=== PATIENT | male | born 1935 | race Caucasian/White ===

== ENCOUNTER → 2020-11-27 | Outpatient (CLI) | payer OTHER ==
[~2020-11-27] MED LIST: ALPRAZOLAM 0.50.5 M1 PO; DOCUSATE CALCI240 MG PO; DONEPEZIL HCL 55 M1 PO; FUROSEMIDE 20 M20 M1 PO; IPRATROPIU0.2 MG/1 M INH; KEPPRA 500 MG500 M1 PO; LOPRESSOR50 PO; LOSARTAN POTASS50 MG PO; LOW DOSE ASPIRI81 M1 PO; MARINOL 2.5 MG2.5 M1 PO; MIRALAX119 GM PO; MULTI VITAMIN1 EACH PO; NEURONTIN 300M300 M2 PO; NITROGLYCERIN12 GM; OMEPRAZOLE 20 M20 M1 PO; PROSCAR 5MG TABL5 MG PO; SIMVASTATIN40 MG PO; TAMSULOSIN HCL0.4 MG PO; THERA TEARS15 ML; TYLENOL325 MG PO; VITAMIN D350 MC3 PO
== END ==
LOC: LAB 09:40
PROVIDERS: ATTEND Ophthalmology
DX: Z01.812 Encounter for preprocedural laboratory examination (principal); Z20.822 Contact with and (suspected) exposure to COVID-19

== ENCOUNTER 2020-11-30 07:12 | Day surgery (SDC) | payer OTHER ==
[~2020-11-30] VITALS: Ht 165.1 cm; Wt 67.6 kg
[2020-11-30 10:11] VITALS: BP 141/62
--- NOTE | 2020-12-04 06:20 | O ---
[facility] [place] [address] OPERATIVE REPORT Name: WHITNEY HERNANDEZ Room #: DEP [facility]..#: [id number] Admission: 11/30/20 Attend Phys: Alexander Shannon MD Discharge: 11/30/20 Date of : 33 Report #: [id number] THIS REPORT FOR: cc: Bruno Kern MD,Bruno Shannon,Alexander Sosa MD ~ DATE OF SERVICE: 11/30/2020 PREOPERATIVE DIAGNOSIS: Left orbital mass. POSTOPERATIVE DIAGNOSIS: Left orbital mass. PROCEDURE: Left transconjunctival orbitotomy. SURGEON: Alexander Shannon MD. WARD MAID: None. ANESTHESIA: MAC. COMPLICATIONS: None. 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 He has not responded to treatment today. He presents today for a repeat excision as his pathology appears to be more bulky then it was described initially. Informed consent was obtained to include but not limited to the potential risk for loss of vision, bleeding, infection, failure to improve the problem and the certain need for additional treatment. Today surgery will just help us direct that treatment. DESCRIPTION OF PROCEDURE: The patient was taken to the operating room where 2% Xylocaine with epinephrine mixed with equal parts 0.75% Marcaine with Wydase was administered transcutaneously and transconjunctivally to the left inferior and medial orbit in addition to the left lateral canthus to have a partial 7th nerve block. The patient was subsequently prepped and draped in the usual sterile fashion. The right eye was protected with a moistened sponge. The left upper lid was then digitally distracted by an financial administrative assistant scrub. A transconjunctival incision was then made in the medial inferior fornix and the dissection carried out back into the orbit. The medial rectus muscle and the inferior rectus muscles were left out of the dissection. The mass was identified and had relatively ill-defined borders. It was excised grossly not leaving any tissue left that appeared abnormal. Hemostasis was achieved with pinpoint monopolar cautery. The conjunctiva was then closed in the area of the transconjunctival incision with 6-0 plain gut sutures. Maxitrol ointment was then placed on the [address] [address] OPERATIVE REPORT Name: WHITNEY HERNANDEZ Room #: DEP [facility].#: [id number] Admission: 11/30/20 Attend Phys: Alexander Shannon MD Discharge: 11/30/20 Date of : 33 Report #: [id number] eye and the patient subsequently transported to the recovery area having tolerated the procedures well with no anesthetic or operative complications being noted. <ELECTRONICALLY SIGNED> By: Alexander Shannon MD 12/04/20 0620 [id number] [id number] Alexander Shannon MD /nt
--- NOTE | 2020-12-07 00:06 | PATH ---
[facility] [address] [place] [address] PATHOLOGY RPT PROCEDURE Name: DAVIDWHITNEY Room #: DEP [facility]#: [id number] Admission: 11/30/20 Date of : 34 Discharge: 11/30/20 Report #: [id number] Path Case #: [id number] [facility] Accession Number: [id number] . 01 Material submitted: . orbit - LEFT ORBITAL TISSUE. Modifiers: left . 01 Clinical history: . GROSS AND MICRO ORBITOTOMY PATHOLOGIST IN OR ROOM PLEASE SEND RPMI FOR FLOW RULE OUT HL NEOPLASM WORKUP . 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 - Mild chronic folliculitis. (CLW:whitney; 12/06/2020) . . Special studies report received from [facility], [address] [place] [address], [address], [place], [address], on case [id number], labeled with their number [id number], dated 12/01/2020. . Flow Cytometry: Hematologic Neoplasia Assessment . Clinical History . . Indication for Study Evaluation for hematolymphoid neoplasia . Specimen Left Orbital Mass . Viability 25% (7AAD exclusion) . 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 . Comments [facility] [address] [place] [address] PATHOLOGY RPT PROCEDURE Name: WHITNEY HERNANDEZ Room #: DEP [facility].#: [id number] Admission: 11/30/20 Date of : 33 Discharge: 11/30/20 Report #: [id number] Path Case #: [id number] Other mature B cell neoplasm with aberrant CD5 expression (marginal zone lymphoma, etc.) are also in the differential diagnosis. Correlation with available clinical, laboratory, and morphologic data is recommended. If needed, FISH testing (CLL panel) is available. Please contact us if further testing for this sample is needed. . This sample is less than 50% viable which is considered suboptimal for routine clinical flow cytometry analysis. The analysis, however, is being reported because the sample is considered irreplaceable. These results must be interpreted in the context of all available clinical, laboratory, and morphologic information. . Populations Analyzed Abnormal B-cells: 8% Scatter properties compatible with small to intermediate cell size, cells characterized as: CD45+, CD19+, CD20+ (dim), CD5+, CD10-, CD23+, FMC7-, CD30-, CD38-, CD43+, HLA DR+, sIg kappa+ (dim) Remaining 12% B-cells: 4.5%, polytypic/polyclonal sIg light Lymphocytes: chain pattern T-cells: no significant abnormalities of the markers tested CD4:CD8: 2.2 NK cells: 1.2% CD45 Negative 80% No significant reactivity with the markers tested Events/Debris: (may represent non-hematolymphoid cells, degenerated cells, debris, unlysed red blood cells, etc.) . Morphologic Evaluation A slide was reviewed for director of quality control purposes only. . Specimen Description Cell Yield: 0.93 x 10 and 6 Due to a low cellular yield, an average of 2600 events were acquired per tube. Flow cytometry data derived from an acquisition of less than 10,000 events needs to be interpreted within the context of all clinical, laboratory, and morphologic information. . Reagent(s) Used CD2, CD3, CD4, CD5, CD7, CD8, CD10, CD11b, CD19, CD20, CD23, CD30, CD38, CD43, CD45, CD56, CD57, FMC-7, HLA-DR, kappa, lambda . at [employer] [place]. Miladis Albright MD Path[place] [address] PATHOLOGY RPT PROCEDURE Name: WHITNEY HERNANDEZ Room #: DEP [facility].#: [id number] Admission: 11/30/20 Date of : 34 Discharge: 11/30/20 Report #: [id number] Path Case #: [id number] . Intended Use Flow cytometry is optimally used to immunophenotypically characterize abnormal populations when they are detected. Negative flow cytometry results do not exclude lymphoma or neoplasia. Possible false negative flow cytometry results may occur in, but are not limited to, the following: neoplastic cells in Hodgkin lymphoma are not typically adequately represented by routine clinical flow cytometry; neoplastic cells may be lost or inadequately represented due to degeneration, sample processing, sampling artifact, or patchy involvement; plasma cells are typically underrepresented by flow cytometry; immature cells/blasts may be underrepresented due to hemodilution; myeloproliferative disorders and low grade myelodysplasia may not have immunophenotypic abnormalities or increased blasts. Correlation with all available clinical, laboratory, and morphologic data is always necessary to assess for the possibility of false negative flow cytometry results and to establish a diagnosis. Each marker in this analysis was used to assess for potential antigenic abnormalities or to evaluate detected abnormalities. . Any image or images that accompany this report are packaging sales representative images only and should not be used to render a diagnosis. . Disclaimer(s) This test was developed and its performance characteristics determined by [employer]. It has not been cleared or approved by the Food and Drug Administration. . Performing [facility] is a business unit of [employer] a wholly-owned subsidiary of [employer] . This test was performed at [employer]. at [address] [facility] [address] [place], [address] - [employer] Maker Helper: Frank Palomo MD. . For inquiries, the physician may contact Lab: [phone] . A complete copy of the report is on file. . Professional services performed by [employer]. at [address], [place] [address]. Technical services performed by [employer]. at [address], [place] [address]. . (IUV:amj 12/04/2020) . [facility] 12/06/[address] [address] PATHOLOGY RPT PROCEDURE Name: WHITNEY HERNANDEZ Room #: DEP [facility].#: [id number] Admission: 11/30/20 Date of : 34 Discharge: 11/30/20 Report #: [id number] Path Case #: [id number] . 02 Comment: Sections show conjunctival tissue with subepithelial edema. Adnexal structures with mild chronic folliculitis are noted. Within the subepithelial area, there is a nodular, mildly atypical lymphoid infiltrate. The lymphocytes are predominantly small, round and mature-appearing with condensed chromatin and scant cytoplasm. Admixed plasma cells are noted. The overlying conjunctival epithelium is without dysplasia. . To further characterize the atypical lymphoid infiltrate, confirm the flow cytometry findings and to identify cells in a tissue architectural context, properly controlled immunohistochemical stains are performed. . Block A1: CD20 - stains the B-cell nodules; PAX-5 - stains the B-cell nodules; CD3 - highlights admixed T-cells; Cyclin D1 - lacks diffuse nuclear staining in the B-cell nodules; CD138 - stains numerous subepithelial plasma cells and the epithelium; MUM-1 - stains numerous subepithelial plasma cells; Pattison and lambda in situ hybridization - plasma cells are polytypic; Ki67 - proliferative index of approximately 10% in the B-cell nodules. . Flow cytometric immunophenotypic analysis was performed at [facility]. 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 There are 12% remaining lymphocytes. Of the remaining lymphocytes, there are 4.5% polyclonal B-cells. T-cells have a CD4/CD8 ratio of 2.2 and no aberrant T-cell antigen expression. Please see separate flow cytometry report from [facility] ([id number]). . Overall, the diagnosis is conjunctiva and submucosal tissue with nodular involvement by chronic lymphocytic leukemia/small lymphocytic lymphoma. Additionally, there is mild chronic folliculitis. Clinical correlation is recommended. The H and E stained slides are co-reviewed with Dr. Rose Tierney who agrees on 12/06/20. . (CLW:whitney; 12/06/2020) . 02 Electronically signed: [place] [address] PATHOLOGY RPT PROCEDURE Name: WHITNEY HERNANDEZ Room #: DEP [facility].Pieter#: [id number] Admission: 11/30/20 Date of : 34 Discharge: 11/30/20 Report #: [id number] Path Case #: [id number] Vianney Reid MD, Pathologist NPI- [id number] . 03 Gross description: . The specimen is received fresh from the OR labeled with the patient's name, and "left orbital tissue" consists of two soft white-garcia fragments of tissue measuring 0.4 x 0.2 x 0.2 and 0.6 x 0.2 x 0.2 cm each. A 0.2 x 0.2 x 0.2 cm portion from each of these is sectioned and submitted in RPMI, sent for flow cytometric analysis to [facility]. The remainder of the specimen is wrapped and submitted in entirety for permanent sections only as A1. (IUV:pit 11/30/2020) IZV/QTP 11/30/2020 1140 Local . 02 Pathologist provided ICD-10: C91.10, C85.19 . 02 CPT . 617528, L48058, Z96571, 158097, O71426, N90196 Specimen Comment: A courtesy copy of this report has been sent to [phone], [phone] Specimen Comment: [id number] Specimen Comment: Report sent to / DR HERNANDEZ Performed at: [address] [facility], [place], [place] [id number] MD Antione Pang MD Phone: [phone] Performed at: [address] [facility] [id number] MD Cierra Sewell MD Phone: [phone] Performed at: [address] [facility] [id number] MD Rose Tierney MD Phone: [phone]
== END 2020-11-30 11:19 | disposition home or self-care (01) ==
LOC: OR 07:12 → TBA 07:12 → OR 10:23
PROVIDERS: ATTEND Ophthalmology
DX: C91.10 Chronic lymphocytic leukemia of B-cell type not having achieved remission (principal); C85.19 Unspecified B-cell lymphoma, extranodal and solid organ sites; L73.9 Follicular disorder, unspecified; I10 Essential (primary) hypertension; I25.10 Atherosclerotic heart disease of native coronary artery without angina pectoris; E78.5 Hyperlipidemia, unspecified; K21.9 Gastro-esophageal reflux disease without esophagitis; Z98.890 Other specified postprocedural states; Z79.899 Other long term (current) drug therapy; Z79.01 Long term (current) use of anticoagulants; Z87.442 Personal history of urinary calculi; Z95.1 Presence of aortocoronary bypass graft; Z95.2 Presence of prosthetic heart valve; Z98.41 Cataract extraction status, right eye; Z98.42 Cataract extraction status, left eye
CPT/HCPCS: 50010; 50101; 50386; 50398; 51636; 62110; 62850; 70005